=== PATIENT | male | born 1960 | race African-American/Black ===

== ENCOUNTER 2019-11-27 08:08 | Inpatient (IN) ==
[2019-11-27] MEDS ORDERED: cefOXitin 2,000 MG in Water for inj. (sterile) 20 ML IVP ONE (08:32)
[2019-11-27] MEDS ORDERED: Ringers Solution, Lactated 1,000 ML IVC SCH (08:45)
[2019-11-27] MEDS ORDERED: Ondansetron 4 MG/2 ML VIAL IVP ONE (09:09)
[2019-11-27] MEDS ORDERED: *HR* OxyCODONE Immed Rel 5 MG TABLET PO PRN (09:09)
[2019-11-27] MEDS ORDERED: *HR* HYDROmorphone PF 0.5 MG/0.5 ML SYRINGE IVP PRN (09:09)
[2019-11-27] MEDS ORDERED: *HR* Promethazine 25 MG/ML VIAL IVP PRN (09:09)
[2019-11-27] MEDS ORDERED: *HR* FentaNYL (PF) 100 MCG/2 ML VIAL ONE (09:21)
[2019-11-27] MEDS ORDERED: *HR* Propofol 200 MG/20 ML VIAL IVP ONE ×2 (09:21→12:39)
[2019-11-27] MEDS ORDERED: *HR* Midazolam HCl 2 MG/2 ML VIAL ONE (09:21)
[2019-11-27] MEDS ORDERED: Lidocaine -MPF 2% 2 ML VIAL ONE (09:23)
[2019-11-27] MEDS ORDERED: *HR* Rocuronium Bromide 50 MG/5 ML VIAL ONE (09:24)
[2019-11-27] MEDS ORDERED: *HR* Succinylcholine 200 MG/10 ML VIAL IVP ONE (09:24)
[2019-11-27] MEDS ORDERED: Acetaminophen IV 1,000 MG/100 ML INFUS..BTL ONE (10:43)
[2019-11-27] MEDS ORDERED: Dexamethasone 4 MG/ML VIAL ONE (11:09)
[2019-11-27] MEDS ORDERED: Ondansetron 4 MG/2 ML VIAL ONE (11:09)
[2019-11-27] MEDS ORDERED: *HR* PHENYLEPHRINE 1,000 MCG/10 ML SYRINGE IVP ONE (12:08)
[2019-11-27] MEDS ORDERED: Ketorolac 30 MG/ML VIAL ONE (12:37)
[2019-11-27] MEDS ORDERED: *HR* HYDROMORPHONE 2 MG/ML VIAL ONE (12:40)
[2019-11-27] MEDS ORDERED: Furosemide 20 MG/2 ML VIAL IVP ONE (13:50)
[2019-11-27] MEDS ORDERED: flumazeniL 0.5 MG/5 ML VIAL IVP ONE (15:23)
[2019-11-27] MEDS ORDERED: Naloxone 0.4 MG/ML INJ ONE (15:23)
[2019-11-27] MEDS ORDERED: 0.9 % Sodium Chloride 1,000 ML IVC SCH (15:47)
[2019-11-27] MEDS ORDERED: Naloxone 0.4 MG/ML INJ IVP PRN (15:47)
[2019-11-27] MEDS ORDERED: Ondansetron 4 MG/2 ML VIAL IVP PRN (15:47)
[2019-11-27] MEDS: Ketorolac 15 MG/ML VIAL IVP SCH (18:39)
[2019-11-28] MEDS: Ketorolac 15 MG/ML VIAL IVP SCH ×4 (01:52→17:13)
[2019-11-28 07:04] LABS: Basophils % 0.1 %; Eosinophils % 0.1 %; Hemoglobin 13.5 g/dL (12.9-16.9); Lymphocytes % 6.6 %
[2019-11-28 07:06] LABS: Hematocrit 41.5 % (37.5-50.1); Immature Granulocytes % 0.3 % (0-4); Immature Platelets 9.9 % (1.1-6.1); Lymphocytes # 0.9 K/mcL (0.6-4.6); Mean Corpuscular HGB Conc 32.5 g/dL (31.6-35.5); Mean Corpuscular Hemoglobin 28.7 pg (28.0-33.3); Mean Corpuscular Volume 88.3 fL (83.0-100.0); Mean Platelet Volume 11.2 fL (9.4-12.4); Monocytes # 0.9 K/mcL (0.0-1.3); Monocytes % 6.1 %; Neutrophils # 12.2 K/mcL (1.6-8.9); Platelet Count 179 K/mcL (140-400); Red Cell Distribution Width 13.1 % (11.5-14.5); Segmented Neutrophils % 86.8 %; White Blood Count 14.1 K/mcL (4.3-11.1)
[2019-11-28 07:22] LABS: BUN/Creatinine Ratio 23 (6-26); Blood Urea Nitrogen 28 mg/dL (6-20); Carbon Dioxide 24 mEq/L (23-29); Chloride 105 mEq/L (98-107); Glucose 158 mg/dL (70-105); Osmolality,Calculated 291 (280-300); Potassium 4.8 mEq/L (3.5-5.1); Sodium 136 mEq/L (136-145); eGFR For African Americans > 60 (> 60); eGFR For Non-African Americans > 60 (> 60)
[2019-11-28] MEDS ORDERED: Acetaminophen 325 MG TABLET PO PRN (14:02)
[2019-11-29] MEDS: Ketorolac 15 MG/ML VIAL IVP SCH ×4 (00:12→19:25)
[2019-11-30] MEDS: Ketorolac 15 MG/ML VIAL IVP SCH ×2 (00:28→06:19)
[2019-11-30 07:22] VITALS: BP 133/87
== END 2019-11-30 10:35 | disposition home or self-care (01) | DRG 330 ==
LOC: SAMDAY 08:08 → 3ANU 15:45 → 2NNU 16:32
PROVIDERS: ADMIT Surgery; ATTEND Surgery